=== PATIENT | female | born 1940 | race American Indian/Alaskan Native ===

== ENCOUNTER 2018-06-20 13:27 | Day surgery (SDC) | payer MEDICARE ==
--- NOTE | 2018-06-20 14:52 | Anesthesia Consultation ---
Anesthesia Consult and Med Hx Date of service: 06/20/18 - Airway Anesthetic Teeth Evaluation: Good ROM Head & Neck: Adequate Mental/Hyoid Distance: Adequate Mallampati Class: Class I Intubation Access Assessment: Good - Pulmonary Exam CTA: Yes - Cardiac Exam Cardiac Exam: RRR - Pre-Operative Health Status ASA Pre-Surgery Classification: ASA2 Proposed Anesthetic Plan: General - Cardiovascular System Hx Hypertension: Yes Hx Heart Attack/AMI: Yes - Additional Comments Anesthesia Medical History Comments: Takes medicine for cholesterol. NAC.
--- NOTE | 2018-06-20 14:52 | Anesthesia Day of Surgery ---
Anesthesia Day of Surgery - Day of Surgery Patient Examined: Yes Patient H&P Reviewed: Yes Patient is NPO: Yes
[2018-06-20] MEDS ORDERED: NACL 0.9% 1000 ML 1,000 ML IV SCH (15:00)
[2018-06-20] MEDS ORDERED: DIPRIVAN 10 MG/ML IV ONE ×3 (15:22→15:43)
[2018-06-20] MEDS ORDERED: GI SPOT IJ ONE (15:42)
[2018-06-20] MEDS ORDERED: XYLOCAINE MPF 2% ONE (16:00)
[2018-06-20] MEDS ORDERED: ZOFRAN ONE (16:18)
--- NOTE | 2018-06-20 16:42 | Operative Report ---
Operative Report Operative Report: Date: 06/20/2018 Operative Report: Date of procedure: 06/20/2018 Procedure: Esophagogastroduodenoscopy with multiple mucosal biopsies Attending physician: Sean Waite MD Home Energy Auditor: Sean Waite MD Indication: Patient is a 77-year-old female who presented with a history of epigastric pain, dyspepsia with early satiety and abnormal weight loss. An upper endoscopy is done to assess patient so that treatment may be directed based on the findings. Consent: Informed consent was obtained after advising the patient and family regarding nature of this procedure, its indications, potential benefits as well as possible complications including but not limited to bleeding perforation and adverse reaction to medication, infection as well as other cardiopulmonary complications. An informed written and verbal consent was then obtained after due opportunity was provided for questions and answers. Monitoring: Patient was monitored continuously with pulse oximetry and electrocardiographic recordings as well as blood pressure recordings. Vital signs remained stable throughout this procedure with no untoward events. Preoperative assessment: Patient was assessed immediately prior to this procedure for capacity to tolerate monitored anesthesia care and moderate sedation as well as general anesthesia. Patient's ASA classification is 2, Mallampati class is 2, Hyomental distance is 3. Instrument: [employer] video endoscope Medications: Propofol given intravenously in divided doses. For details please refer to anesthesia records. Description of procedure: Patient was placed in the left lateral decubitus position after achieving sedation, the endoscope was introduced into the esophagus under direct vision. It was then advanced beyond the esophagus into the stomach and then beyond the stomach into the duodenum and to the second portion of the duodenum. It was subsequently withdrawn with careful inspection of all mucosal surfaces with the following findings. Findings: Esophagus was normal. The Z line was irregular. There was a 1-2 cm sliding hiatal hernia seen on entry into the stomach. There was mild erythema with erosions in the gastric antrum. Biopsies of the antrum were obtained for histopathology, to rule out microscopic disease. The duodenum was normal to second portion. Impression: Irregular Z line. Hiatal hernia Gastric antral erythema with erosion, Status post biopsies of the gastric antrum . Plan: Follow pathology report. Direct additional treatment based on the pathology report. Observe patient clinically otherwise. Evaluate further with a colonoscopy.
--- NOTE | 2018-06-20 16:43 | Discharge Summary ---
Short Stay Discharge Plan Activity: advance as tolerated Weight Bearing Status: Weight Bear as Tolerated Diet: regular Additional Instructions: Post Sedation D/C Instructions When you return home you may resume your regular diet unless otherwise directed. -Go directly home from the hospital and rest quietly. You may resume normal activities tomorrow. -Do NOT drive, return to work, operate any machinery or make any important personal or business decisions today. -Do NOT drink any alcohol or take nerve or sleeping drugs. They add to the effects of the medicine still present in your body. Follow up with Dr. Waite in 2 weeks to obtain pathology results and treatment plan. Follow up with: PRIMARY CARE, [Primary Care Provider] - 7 Days
[2018-06-20] MEDS ORDERED: DILAUDID ONE (16:53)
[2018-06-20] MEDS ORDERED: SUBLIMAZE ONE (16:54)
--- NOTE | 2018-06-20 16:56 | Operative Report ---
Operative Report Operative Report: Date of procedure: 06/20/2018 Procedure: Colonoscopy with Submucosal Injection, Multiple Biopsies of rectal mass. Attending physician: Sean Waite MD Collar Baster: Sean Waite MD Indication: Patient is a 77-year-old female who presents with a history of change in bowel habit with constipation and abdominal pain and abnormal weight loss. This colonoscopy serves to evaluate patient so that treatment may be directed based on the findings. Consent: Informed consent was obtained after advising the patient and family regarding nature of this procedure, its indications, potential benefits as well as possible complications including but not limited to bleeding perforation and adverse reaction to medication, infection as well as other cardiopulmonary complications. An informed written and verbal consent was then obtained after due opportunity was provided for questions and answers. Monitoring: Patient was monitored continuously with pulse oximetry and electrocardiographic recordings as well as blood pressure recordings. Vital signs remained stable throughout this procedure with no untoward events. Preoperative assessment: Patient was assessed immediately prior to this procedure for capacity to tolerate monitored anesthesia care and moderate sedation as well as general anesthesia. Patient's ASA classification is 2, Mallampati class is 2, Hyomental distance is 3. Instrument: [id number] video colonoscope Medications: Propofol given intravenously in divided doses. For details please refer to anesthesia records. Description of procedure: Patient was placed in the left lateral decubitus position after achieving sedation, a digital rectal examination was performed following which the colonoscope was introduced into the anal verge and advanced to the sigmoid colon patient had a partially obstructing rectal mass . It was difficult to go beyond this must therefore the colonoscope was withdrawn. The gastroscope was then inserted in hopes that this could be maneuvered much more easily. It was difficult to go beyond this mass and the gastroscope could only be extended to 25 cm. It was however withdrawn from this point due to inability to go beyond this area due to an obstructing rectal mass. Several biopsies are obtained from the rectal mass for histopathology. The distal margin of the mass beginning at about 10 cm, was tattooed. The proximal margin could not be seen as this extended beyond 20 cm. Patient tolerated this procedure well and was subsequently taken to the recovery room. The following findings were noted. Findings: Obstructing mass in the rectum which was friable and edematous. Several biopsies were obtained. Patient had internal hemorrhoids on retroflex view. Impression: Obstructing rectal mass. Status post biopsies with submucosal injection and tattoo of the distal margin. Internal hemorrhoids. Plan: Follow pathology report. High-fiber diet. The endoscopic appearance of the mass suggests possible rectal cancer. Interim, an MRI of the rectum will be obtained. Also CT scan of the abdomen and pelvis will be obtained. Pending pathology report, patient will be referred to hematology /oncology.
[2018-06-20] MEDS ORDERED: INFANTS' GAS RELIEF PO ONE (17:14)
[2018-06-20] MEDS ORDERED: LEVSIN SL SL PRN (18:00)
[2018-06-20 19:33] VITALS: BP 197/72
== END 2018-06-20 13:28 | disposition home or self-care (01) ==
LOC: GIO 13:27
PROVIDERS: ATTEND Internal Medicine Gastroenterology
DX: K29.50 Unspecified chronic gastritis without bleeding (principal); K64.8 Other hemorrhoids; K31.89 Other diseases of stomach and duodenum; K62.89 Other specified diseases of anus and rectum; K59.00 Constipation, unspecified; K44.9 Diaphragmatic hernia without obstruction or gangrene; I11.0 Hypertensive heart disease with heart failure; I50.9 Heart failure, unspecified; E78.00 Pure hypercholesterolemia, unspecified; K21.9 Gastro-esophageal reflux disease without esophagitis; Z90.49 Acquired absence of other specified parts of digestive tract; Z90.710 Acquired absence of both cervix and uterus
CPT/HCPCS: 43239; 45380; 45381; 88305; 88342; J2405; J2704; J3010; J7030; J1170